=== PATIENT | female | born 1950 | race Caucasian/White ===

== ENCOUNTER 2023-07-20 10:12 | Outpatient (CLI) | payer MEDICARE, OTHER ==
[2023-07-20 11:08] LABS: BASOPHILS # (AUTO) 0.1 K/uL (0.0-0.2); BASOPHILS % (AUTO) 0.9 % (0.0-2.0); EOSINOPHILS # (AUTO) 0.2 K/uL (0.0-0.7); HEMATOCRIT 36 % (33-45); HEMOGLOBIN 11.6 g/dL (11.5-14.8); LYMPHOCYTES # (AUTO) 1.4 K/uL (0.8-4.8); LYMPHOCYTES % (AUTO) 17.9 % (20.0-44.0); MEAN CORPUSCULAR HEMOGLOBIN 26 PG (26.0-33.0); MEAN CORPUSCULAR HGB CONC 32 g/dl (31.0-36.0); MEAN CORPUSCULAR VOLUME 80 fL (82-100); MONOCYTES # (AUTO) 0.6 K/uL (0.1-1.30); MONOCYTES % (AUTO) 7.5 % (2.0-12.0); NEUTROPHILS # (AUTO) 5.7 K/uL (1.8-8.9); NEUTROPHILS % (AUTO) 71.7 % (43.0-81.0); PLATELET COUNT (AUTO) 218 K/uL (150-450); RED BLOOD CELL COUNT(AUTO) 4.54 MIL/uL (4.0-5.2); RED CELL DISTRIBUTION WIDTH 16.1 % (11.5-15.0)
[2023-07-20 11:10] LABS: APPEARANCE,URINE CLEAR (CLEAR); BILIRUBIN,URINE NEGATIVE (NEGATIVE); BLOOD, URINE TRACE-INTA Ery/uL (NEGATIVE); COLOR,URINE YELLOW (YELLOW); KETONES,URINE NEGATIVE (NEGATIVE); LEUKOCYTE ESTERASE ,URINE NEGATIVE (NEGATIVE); NITRITE, URINE NEGATIVE (NEGATIVE); PROTEIN,URINE NEGATIVE (NEGATIVE); UGLUCOSE 3+ mg/dL (NEGATIVE); UROBILINOGEN,URINE 0.2 EU/dL (0.2)
[2023-07-20 11:15] LABS: INR 1.04 (0.91-1.10); PARTIAL THROMBOPLASTIN TIME 27.6 SEC (24.3-34.3); PROTHROMBIN TIME 10.9 SECS (9.2-11.1)
[2023-07-20 11:37] LABS: CALCIUM, SERUM 9.7 mg/dL (8.5-10.1); CREATININE 1.3 mg/dL (0.6-1.3); POTASSIUM 4.2 mmol/L (3.5-5.1)
[2023-07-20 11:56] LABS: ADD URINE CULTURE NO; BACTERIA,URINE Rare /HPF (None Seen); RBC,URINE 0-2 /HPF (0-2); SQUAMOUS EPITHELIAL CELL,UR Rare /HPF (None Seen); WBC,URINE 0-2 /HPF (0-3)
== END 2023-07-20 23:59 | disposition home or self-care (01) ==
LOC: RAD 10:12
PROVIDERS: ATTEND Internal Medicine Pulmonary Disease
DX: Z01.818 Encounter for other preprocedural examination (principal); I70.0 Atherosclerosis of aorta
CPT/HCPCS: 36415; 71045-TC; 80048-TC; 81001; 85025-TC; 85610-TC; 85730-TC

== ENCOUNTER 2023-07-30 05:25 | Inpatient (IN) | payer MEDICARE, OTHER ==
[~2023-07-30] VITALS: Ht 175.3 cm; Wt 72.6 kg
[2023-07-30 06:00] VITALS: BP 129/56; TEMP 98.1; O2SAT 97
[2023-07-30] MEDS ORDERED: LIDOCAINE 2%-EPI 1:100,000 30 ML VIAL ONE (07:08)
[2023-07-30] MEDS ORDERED: ANESTHESIA TRAY IN PYXIS 1 EA TRAY MC ONE (07:08)
[2023-07-30] MEDS ORDERED: dexaMETHasone SOD PHOSPHATE 10 MG/ML VIAL ONE (07:09)
[2023-07-30] MEDS ORDERED: VANCOMYCIN 1 GM VIAL ONE (07:09)
[2023-07-30] MEDS ORDERED: FAMOTIDINE/PF INJ 20 MG/2 ML VIAL IV ONE (07:12)
[2023-07-30] MEDS ORDERED: ROCURONIUM BROMIDE 50 MG/5 ML ONE (07:12)
[2023-07-30] MEDS ORDERED: Magnesium 1 GM/2 ML VIAL ONE (07:12)
[2023-07-30] MEDS ORDERED: OXYMETAZOLINE HCL NASAL SPRAY 30 ML BOTTLE NS ONE (07:12)
[2023-07-30] MEDS ORDERED: FENTANYL PF 100MCG/2ML AMPUL ONE (07:12)
[2023-07-30] MEDS ORDERED: SEVOFLURANE 250 ML BOTTLE IH ONE (08:57)
[2023-07-30] MEDS ORDERED: ONDANSETRON HCL/PF 4 MG/2 ML VIAL IVP PRN ×2 (11:00→16:00)
[2023-07-30] MEDS ORDERED: IV NS 0.9% 1,000 ML IV PRN (11:00)
[2023-07-30] MEDS ORDERED: ACETAMINOPHEN 325 MG TABLET PO PRN ×2 (11:00→16:00)
[2023-07-30] MEDS ORDERED: HYDROMORPHONE 1 MG/1 ML DISP.SYRIN IV PRN (11:00)
[2023-07-30] MEDS ORDERED: ERGO500040 PO (11:49)
[2023-07-30] MEDS ORDERED: ALLO100T PO (11:49)
[2023-07-30] MEDS ORDERED: PANT20TA2 PO (11:49)
[2023-07-30] MEDS ORDERED: CARV6.252 PO (11:49)
[2023-07-30] MEDS ORDERED: SITA1TAB6 PO (11:49)
[2023-07-30] MEDS ORDERED: POTA20TA83 PO (11:49)
[2023-07-30] MEDS ORDERED: AMIO100T4 PO (11:49)
[2023-07-30] MEDS ORDERED: METF-440 PO (11:49)
[2023-07-30] MEDS ORDERED: APIX5TAB PO (11:49)
[2023-07-30] MEDS ORDERED: FURO-144 PO (11:49)
[2023-07-30] MEDS ORDERED: EMPA10TA PO (11:49)
[2023-07-30] MEDS ORDERED: ASPI-1420 PO (11:49)
[2023-07-30] MEDS ORDERED: ATOR20TA PO (11:49)
[2023-07-30] MEDS ORDERED: SACU1TAB7 PO (11:49)
[2023-07-30] MEDS ORDERED: LIPA1CAP15 PO (11:50)
[2023-07-30 15:20] LABS: CALCIUM, SERUM 9.1 mg/dL (8.5-10.1); CREATININE 1.1 mg/dL (0.6-1.3); POTASSIUM 4.6 mmol/L (3.5-5.1)
[2023-07-30 15:26] LABS: ALBUMIN 3.5 g/dL (3.4-5.0); BILIRUBIN,TOTAL 0.3 mg/dL (0.2-1.0)
[2023-07-30 16:00] VITALS: BP 125/54; TEMP 98.6; O2SAT 96
[2023-07-30] MEDS ORDERED: Z GUARD REMEDY 4 OZ OINT TP PRN (16:00)
[2023-07-30] MEDS ORDERED: MAGNESIUM HYDROXIDE 30 ML UDC PO PRN (16:00)
[2023-07-30] MEDS: METFORMIN 500 MG TABLET PO SCH (17:27)
[2023-07-30] MEDS: LINAGLIPTIN 5 MG TABLET PO SCH (17:27)
[2023-07-30] MEDS: CARVEDILOL 6.25 MG TABLET PO SCH (17:30)
[2023-07-30] MEDS: SACUBITRIL/VALSARTAN 1 EACH TABLET PO SCH (17:32)
[2023-07-30 20:00] VITALS: BP 117/55; TEMP 98; O2SAT 97
[2023-07-30] MEDS: VANCOMYCIN 1 GM in IV D5W 250ml IV SCH (20:27)
[2023-07-31 06:19] LABS: BASOPHILS % (AUTO) 0.3 % (0.0-2.0); HEMATOCRIT 31 % (33-45); HEMOGLOBIN 9.9 g/dL (11.5-14.8); LYMPHOCYTES # (AUTO) 1.1 K/uL (0.8-4.8); LYMPHOCYTES % (AUTO) 10.7 % (20.0-44.0); MEAN CORPUSCULAR HEMOGLOBIN 26 PG (26.0-33.0); MEAN CORPUSCULAR HGB CONC 32 g/dl (31.0-36.0); MEAN CORPUSCULAR VOLUME 81 fL (82-100); MONOCYTES # (AUTO) 0.9 K/uL (0.1-1.30); MONOCYTES % (AUTO) 8.8 % (2.0-12.0); NEUTROPHILS # (AUTO) 8.5 K/uL (1.8-8.9); NEUTROPHILS % (AUTO) 80.2 % (43.0-81.0); PLATELET COUNT (AUTO) 184 K/uL (150-450); RED BLOOD CELL COUNT(AUTO) 3.85 MIL/uL (4.0-5.2); RED CELL DISTRIBUTION WIDTH 16.4 % (11.5-15.0); WHITE BLOOD COUNT (AUTO) 10.6 K/uL (4.3-11.0)
[2023-07-31 06:55] LABS: CALCIUM, SERUM 8.9 mg/dL (8.5-10.1); CREATININE 1.1 mg/dL (0.6-1.3); MAGNESIUM 2.4 mg/dL (1.8-2.4); PHOSPHORUS 4.3 mg/dL (2.5-4.9); POTASSIUM 4.4 mmol/L (3.5-5.1)
[2023-07-31] MEDS ORDERED: PANTOPRAZOLE 40 MG TABLET.DR PO SCH ×2 (07:30)
[2023-07-31 08:00] VITALS: BP 102/56; TEMP 99; O2SAT 95
[2023-07-31] MEDS: LIPASE/PROTEASE/AMYLASE 1 EACH CAPSULE.DR PO SCH ×2 (08:00→13:00)
[2023-07-31] MEDS: LINAGLIPTIN 5 MG TABLET PO SCH (08:59)
[2023-07-31 09:00] VITALS: BP 120/56
[2023-07-31] MEDS: METFORMIN 500 MG TABLET PO SCH (09:00)
[2023-07-31] MEDS: CARVEDILOL 6.25 MG TABLET PO SCH (09:00)
[2023-07-31] MEDS: SACUBITRIL/VALSARTAN 1 EACH TABLET PO SCH (09:00)
[2023-07-31] MEDS ORDERED: ATORVASTATIN 10 MG TABLET PO SCH (09:00)
[2023-07-31] MEDS ORDERED: ALLOPURINOL 100 MG TABLET PO SCH (09:00)
[2023-07-31] MEDS ORDERED: POTASSIUM CHLORIDE 20 MEQ TAB.PRT.SR PO SCH (09:00)
[2023-07-31] MEDS ORDERED: AMIODARONE HCL 200 MG TABLET PO SCH (09:00)
[2023-07-31] MEDS ORDERED: FUROSEMIDE 40 MG TABLET PO SCH (09:00)
[2023-07-31] MEDS: VANCOMYCIN 1 GM in IV D5W 250ml IV SCH (09:15)
[2023-08-01] MEDS ORDERED: ERGOCALCIFEROL (VITAMIN D 2) 50,000 UNIT CAPSULE PO SCH (09:00)
== END 2023-07-31 15:40 | disposition home or self-care (01) | DRG 516 ==
LOC: DS 05:25 → MED 05:26
PROVIDERS: ADMIT Nurse Practitioner Family; ATTEND Nurse Practitioner Family
PROC: 0NSR04Z Reposition Maxilla with Internal Fixation Device, Open Approach (ICD-10-PCS; principal; 2023-07-30)
PROC: 0NSV04Z Reposition Left Mandible with Internal Fixation Device, Open Approach (ICD-10-PCS; 2023-07-30)
PROC: 0NST04Z Reposition Right Mandible with Internal Fixation Device, Open Approach (ICD-10-PCS; 2023-07-30)
PROC: 0NUV07Z Supplement Left Mandible with Autologous Tissue Substitute, Open Approach (ICD-10-PCS; 2023-07-30)
PROC: 0NUT07Z Supplement Right Mandible with Autologous Tissue Substitute, Open Approach (ICD-10-PCS; 2023-07-30)
PROC: 0NUR07Z Supplement Maxilla with Autologous Tissue Substitute, Open Approach (ICD-10-PCS; 2023-07-30)
PROC: 0NBR0ZZ Excision of Maxilla, Open Approach (ICD-10-PCS; 2023-07-30)
PROC: 0NBV0ZX Excision of Left Mandible, Open Approach, Diagnostic (ICD-10-PCS; 2023-07-30)
DX: M84.58XA Pathological fracture in neoplastic disease, other specified site, initial encounter for fracture (principal); M87.88 Other osteonecrosis, other site; M27.40 Unspecified cyst of jaw; E11.9 Type 2 diabetes mellitus without complications; I48.91 Unspecified atrial fibrillation; K21.9 Gastro-esophageal reflux disease without esophagitis; Z86.73 Personal history of transient ischemic attack (TIA), and cerebral infarction without residual deficits; I11.0 Hypertensive heart disease with heart failure; I50.9 Heart failure, unspecified; Z79.84 Long term (current) use of oral hypoglycemic drugs; I34.0 Nonrheumatic mitral (valve) insufficiency; D16.5 Benign neoplasm of lower jaw bone
CPT/HCPCS: 36415; 80048-TC; 80053-TC; 82962-TC; 83735-TC; 84100-TC; 85025-TC; 87081-TC; 88305-TC; 88311-TC; 88312-TC; A4223; C1713; G0378; J1100; J2370; J2405; J2704; J2765; J3010; J3370; J3475; J3490; J7030; J7060